=== PATIENT | male | born 1955 | race Caucasian/White ===

== ENCOUNTER 2022-07-16 17:01 | Emergency (ER) | payer MEDICAID ==
[~2022-07-16] VITALS: Ht 182.9 cm; Wt 127.0 kg
[2022-07-16 19:10] VITALS: BP 119/68
== END 2022-07-16 20:17 | disposition home or self-care (01) ==
LOC: ER 17:23
DX: Z46.6 Encounter for fitting and adjustment of urinary device (principal); I10 Essential (primary) hypertension; E11.9 Type 2 diabetes mellitus without complications; E78.5 Hyperlipidemia, unspecified; Z95.1 Presence of aortocoronary bypass graft; Z95.5 Presence of coronary angioplasty implant and graft; Z89.511 Acquired absence of right leg below knee
CPT/HCPCS: 51700; 99283

== ENCOUNTER 2022-09-18 22:25 | Emergency (ER) | payer MEDICAID ==
[~2022-09-18] VITALS: Ht 190.5 cm; Wt 131.5 kg
[2022-09-18 23:07] LABS: CLARITY,URINE CLOUDY (CLEAR); COLOR,URINE YELLOW (YELLOW); KETONES,URINE NEGATIVE (NEGATIVE); LEUKOCYTE ESTERASE ,URINE TRACE (NEGATIVE); NITRITE,URINE NEGATIVE (NEGATIVE); PROTEIN,URINE DIPSTICK 1+ (NEGATIVE); URINE UROBILINOGEN 0.2 mg/dL (0.2 - 1)
[2022-09-18 23:35] LABS: BACTERIA,URINE MANY /HPF; EPITHELIAL CELLS,URINE FEW /LPF; WBC,URINE (MAN) >50 /HPF (0-5)
[2022-09-19] MEDS ORDERED: CEFDINIR300 MG PO (00:04)
== END 2022-09-19 01:45 | disposition home or self-care (01) ==
LOC: ER 22:46
DX: T83.091A Other mechanical complication of indwelling urethral catheter, initial encounter (principal); N30.90 Cystitis, unspecified without hematuria; R33.8 Other retention of urine; E11.9 Type 2 diabetes mellitus without complications; I10 Essential (primary) hypertension; Y84.8 Other medical procedures as the cause of abnormal reaction of the patient, or of later complication, without mention of misadventure at the time of the procedure; Z88.6 Allergy status to analgesic agent; Z89.511 Acquired absence of right leg below knee; Z87.891 Personal history of nicotine dependence
CPT/HCPCS: 51700; 81001; 87086; 87186; 99283

== ENCOUNTER 2022-10-03 13:26 | Emergency (ER) | payer MEDICAID ==
[~2022-10-03] VITALS: Ht 190.5 cm; Wt 131.5 kg
[~2022-10-03 13:26] MED LIST: CEFDINIR300 MG PO
[2022-10-03] MEDS ORDERED: KETOROLAC TROMETHAMINE 30 MG/ML VIAL IM STA (14:10)
[2022-10-03 14:25] LABS: CLARITY,URINE SL CLOUDY (CLEAR); COLOR,URINE YELLOW (YELLOW); KETONES,URINE NEGATIVE (NEGATIVE); LEUKOCYTE ESTERASE ,URINE SMALL (NEGATIVE); NITRITE,URINE NEGATIVE (NEGATIVE); PROTEIN,URINE DIPSTICK >=300 (NEGATIVE); URINE UROBILINOGEN 0.2 mg/dL (0.2 - 1)
[2022-10-03] MEDS ORDERED: LIDOCAINE HCL 2% JELLY 5 ML TUBE TOP ONE (14:30)
[2022-10-03 14:48] LABS: BACTERIA,URINE MODERATE /HPF; WBC,URINE (MAN) 21-50 /HPF (0-5)
[2022-10-03] MEDS ORDERED: BACTRIM DS TAB1 EACH PO (14:51)
[2022-10-03] MEDS ORDERED: ACETAMINOPHEN 325 MG TAB ONE (16:43)
[2022-10-03] MEDS ORDERED: ACETAMINOPHEN 325 MG TAB PO ONE (16:45)
[2022-10-03 18:02] VITALS: BP 138/99
== END 2022-10-03 18:03 | disposition home or self-care (01) ==
LOC: ER 13:30
DX: Z46.6 Encounter for fitting and adjustment of urinary device (principal); N39.0 Urinary tract infection, site not specified; I10 Essential (primary) hypertension; E11.9 Type 2 diabetes mellitus without complications; E78.5 Hyperlipidemia, unspecified; E66.9 Obesity, unspecified; Z89.511 Acquired absence of right leg below knee; Z95.1 Presence of aortocoronary bypass graft; Z95.5 Presence of coronary angioplasty implant and graft
CPT/HCPCS: 81001; 87086; 87186; 99284; J1885; J2001